=== PATIENT | male | born 1990 | race Two or more races ===

== ENCOUNTER 2018-03-31 22:21 | Inpatient (IN) | payer MEDICAID, OTHER ==
[~2018-03-31] VITALS: Ht 170.2 cm; Wt 57.3 kg
[2018-04-01 01:19] LABS: Basophils # (auto) 0 uL; Eosinophils # (auto) 0 uL; Hemoglobin 18.4 g/dL (13.5-17.5); Lymphocytes # (auto) 0.9 uL
[2018-04-01 01:21] LABS: Basophils % (auto) 0.2 % (0.0-2.0); Hematocrit 53.9 % (41.0-53.0); Lymphocytes % (auto) 9.5 % (10.0-50.0); Mean Corpuscular Hemoglobin 31.6 pg (28.0-32.0); Mean Corpuscular Hgb Conc. 34.1 g/dL (32.0-36.0); Mean Corpuscular Volume 92.7 fL (80.0-100.0); Monocytes # (auto) 0.2 uL; Monocytes % (auto) 2.4 % (0.0-12.0); Neutrophils # (auto) 8.5 uL; Neutrophils % (auto) 87.9 % (37.0-80.0); Nucleated Red Blood Cells % 0.2 %; Platelet Count (auto) 210 10^3/uL (140-450); Red Blood Cells 5.81 10^6/uL (4.5-5.90); Red Cell Distribution Width 14.2 % (11.8-14.3); White Blood Cell 9.7 10^3/uL (4.4-10.8)
[2018-04-01] MEDS ORDERED: InsuLIN REG 1unit/0.01ml Soln (100units/ml) IV ONE (01:30)
[2018-04-01] MEDS ORDERED: SODIUM CHLORIDE 0.9% 3,000 ML IV ONE ×2 (01:30→01:45)
[2018-04-01] MEDS ORDERED: KETOROLAC TROMETH 30 MG/ML 1ML VIAL IV ONE (01:45)
[2018-04-01] MEDS ORDERED: SODIUM BICARBONATE 8.4 % INJ 50ML VIAL IV ONE (01:45)
[2018-04-01] MEDS ORDERED: PANTOPRAZOLE 40 MG/10 ML VIAL IV ONE (01:45)
[2018-04-01 01:47] LABS: Albumin 4.7 g/dL (3.4-5.0); Calcium 9.3 mg/dL (8.5-10.1); Magnesium 2.6 mg/dL (1.6-2.6); Potassium 3.6 mmol/L (3.5-5.1)
[2018-04-01 01:49] LABS: Bilirubin, Total 1.1 mg/dL (0.2-1.0); Lactic Acid w/Reflex 3.1 mmol/L (0.4-2.0); Total Protein 9.4 g/dL (6.4-8.2)
[2018-04-01] MEDS ORDERED: cefTRIAXone 1GM/10ml IVPUSH 10 ML IV ONE (02:30)
[2018-04-01] MEDS ORDERED: fentaNYL CITRATE 100 MCG/2 ML VL IV ONE (03:00)
[2018-04-01] MEDS ORDERED: DEXTROSE (50%) 50ML SYRG IV PRN (03:00)
[2018-04-01] MEDS: ACCU-CHEK COMFORT CURVE STRIP VI SCH ×14 (03:00→22:54)
[2018-04-01] MEDS ORDERED: InsuLIN R (HUMAN) 100 UNITS in SODIUM CHL 0.9% 99 ML IV SCH (03:00)
[2018-04-01] MEDS: InsuLIN R (HUMAN) 100 UNITS in SODIUM CHL 0.9% 99 ML IV SCH ×3 (03:00→22:54)
[2018-04-01 03:02] LABS: Alcohol, Urine < 3.0 mg/dL (0-5); Amphetamine Screen, Urine NEGATIVE (NEGATIVE); Barbiturate Scree,Urine NEGATIVE (NEGATIVE); Benzodiazephine Screen, Urine NEGATIVE (NEGATIVE); Cannabinoid Screen, Urine POSITIVE (NEGATIVE); Cocaine Screen, Urine NEGATIVE (NEGATIVE); Opiate Scree,Urine NEGATIVE (NEGATIVE); Phencyclidine Screen, Urine NEGATIVE (NEGATIVE)
[2018-04-01 03:14] LABS: Urine Bacteria FEW /hpf (None Seen); Urine Blood TRACE /uL (Negative); Urine Hyaline Cast MANY /lpf (0 - 2); Urine Mucus FEW (None Seen); Urine Specific Gravity 1.018 (1.001-1.035); Urine WBC 1 /hpf (0 - 3)
[2018-04-01] MEDS ORDERED: SODIUM BICARBONATE 50ML VIAL 50 ML in SOD CHL 0.45% 1,000 ML IV SCH (03:15)
[2018-04-01] MEDS ORDERED: SODIUM BICARBONATE 8.4% INJ 50ML SYRINGE ONE (03:27)
[2018-04-01] MEDS: SODIUM CHLORIDE 0.9% 1,000 ML IV SCH ×3 (03:52→22:20)
[2018-04-01] MEDS ORDERED: SODIUM CHLORIDE 0.9% 1,000 ML IV ONE (04:00)
[2018-04-01 05:03] LABS: Basophils # (auto) 0.1 uL; Basophils % (auto) 1.1 % (0.0-2.0); Eosinophils # (auto) 0 uL; Eosinophils % (auto) 0.3 % (0.0-7.0); Hematocrit 39.7 % (41.0-53.0); Hemoglobin 13.8 g/dL (13.5-17.5); Lymphocytes # (auto) 0.2 uL; Lymphocytes % (auto) 2.7 % (10.0-50.0); Mean Corpuscular Hemoglobin 31.1 pg (28.0-32.0); Mean Corpuscular Hgb Conc. 34.8 g/dL (32.0-36.0); Mean Corpuscular Volume 89.5 fL (80.0-100.0); Monocytes # (auto) 0.3 uL; Neutrophils # (auto) 8.4 uL; Neutrophils % (auto) 92.9 % (37.0-80.0); Platelet Count (auto) 153 10^3/uL (140-450); Red Blood Cells 4.43 10^6/uL (4.5-5.90); Red Cell Distribution Width 13.7 % (11.8-14.3); White Blood Cell 9.1 10^3/uL (4.4-10.8)
[2018-04-01 05:12] LABS: BUN/Creatinine Ratio 12.3; Calcium 6.6 mg/dL (8.5-10.1)
[2018-04-01 05:32] LABS: Potassium 2.5 mmol/L (3.5-5.1)
[2018-04-01] MEDS ORDERED: POTASSIUM CHL 20MEQ/100ML 100 ML IV ONE ×2 (05:41→06:30)
[2018-04-01] MEDS: ACETAMINOPHEN 500 MG TAB PO PRN (07:49)
[2018-04-01] MEDS: ONDANSETRON HCL 4 MG/2 ML VIAL IV PRN ×5 (07:50→22:59)
[2018-04-01] MEDS: D5W/SOD CHL 0.9%/KCL 40MEQ 1,000 ML IV SCH ×2 (12:04→18:25)
[2018-04-01] MEDS: SULFAMETHOX W/TRIMETH(800/160MG) DS TAB PO SCH ×2 (12:04→22:00)
[2018-04-01 13:01] LABS: BUN/Creatinine Ratio 9.8; Calcium 7.1 mg/dL (8.5-10.1)
[2018-04-01 13:05] LABS: Potassium 2.1 mmol/L (3.5-5.1)
[2018-04-01] MEDS ORDERED: POTASSIUM CHL 20 Meq TABLET PO ONE ×2 (13:15→17:45)
[2018-04-01] MEDS: POTASSIUM CHL 20 Meq TABLET PO SCH ×2 (13:34→22:00)
[2018-04-01] MEDS: KETOROLAC TROMETH 30 MG/ML 1ML VIAL IV PRN (15:52)
[2018-04-01 17:23] LABS: BUN/Creatinine Ratio 8.5; Calcium 7.5 mg/dL (8.5-10.1)
[2018-04-01 17:25] LABS: Potassium 2.3 mmol/L (3.5-5.1)
[2018-04-01] MEDS: MORPHINE SULF INJ 2 MG/ML SYRINGE 1ML IV PRN ×2 (17:40→22:59)
[2018-04-01 22:49] LABS: BUN/Creatinine Ratio 7.6; Calcium 7.7 mg/dL (8.5-10.1)
[2018-04-02] MEDS: D5W/SOD CHL 0.9%/KCL 40MEQ 1,000 ML IV SCH (01:08)
[2018-04-02] MEDS: ACCU-CHEK COMFORT CURVE STRIP VI SCH ×7 (01:30→21:15)
[2018-04-02] MEDS ORDERED: DEXTROSE (50%) 50ML SYRG IV PRN (02:15)
[2018-04-02] MEDS: SOD CHL 0.9%/ KCL 40MEQ 1,000 ML IV SCH ×4 (04:20→22:05)
[2018-04-02] MEDS: InsuLIN REG 1unit/0.01ml Soln (100units/ml) SC SCH ×5 (04:25→21:18)
[2018-04-02] MEDS: ONDANSETRON HCL 4 MG/2 ML VIAL IV PRN ×4 (04:31→21:07)
[2018-04-02] MEDS: MORPHINE SULF INJ 2 MG/ML SYRINGE 1ML IV PRN ×4 (04:31→21:07)
[2018-04-02 05:00] VITALS: BP_SYST 103; BP_SYST 129; BP_DIAS 74; BP_DIAS 83
[2018-04-02] MEDS ORDERED: METO5TAB2 PO (05:14)
[2018-04-02] MEDS ORDERED: INSREG3 SC (05:14)
[2018-04-02] MEDS ORDERED: FAMO-12 PO (05:14)
[2018-04-02] MEDS ORDERED: TRAM50TA2 PO (05:14)
[2018-04-02] MEDS: KETOROLAC TROMETH 30 MG/ML 1ML VIAL IV PRN (06:37)
[2018-04-02] MEDS: POTASSIUM CHL 20 Meq TABLET PO SCH ×3 (06:37→21:19)
[2018-04-02] MEDS ORDERED: POTASSIUM CHL 20 Meq TABLET PO ONE (08:15)
[2018-04-02 08:50] LABS: Basophils # (auto) 0 uL; Basophils % (auto) 0.3 % (0.0-2.0); Eosinophils # (auto) 0 uL; Eosinophils % (auto) 0.1 % (0.0-7.0); Hematocrit 32.6 % (41.0-53.0); Hemoglobin 11.8 g/dL (13.5-17.5); Lymphocytes # (auto) 1.1 uL; Lymphocytes % (auto) 28.1 % (10.0-50.0); Mean Corpuscular Volume 86.2 fL (80.0-100.0); Monocytes # (auto) 0.4 uL; Neutrophils # (auto) 2.3 uL; Neutrophils % (auto) 61.5 % (37.0-80.0); Platelet Count (auto) 122 10^3/uL (140-450); Red Blood Cells 3.79 10^6/uL (4.5-5.90); Red Cell Distribution Width 13.9 % (11.8-14.3); White Blood Cell 3.8 10^3/uL (4.4-10.8)
[2018-04-02 09:00] VITALS: BP 95/66
[2018-04-02 09:07] LABS: BUN/Creatinine Ratio 8.3; Magnesium 2.3 mg/dL (1.6-2.6); Potassium 3.7 mmol/L (3.5-5.1)
[2018-04-02] MEDS: SULFAMETHOX W/TRIMETH(800/160MG) DS TAB PO SCH ×2 (10:26→21:19)
[2018-04-02] MEDS: Glucerna Carbsteady SHAKE Vanilla 8oz PO SCH ×3 (12:00→21:20)
[2018-04-02 12:40] VITALS: BP 86/56
[2018-04-02 17:14] VITALS: BP 94/66
[2018-04-02 22:00] VITALS: BP 97/57
[2018-04-03] MEDS: ACCU-CHEK COMFORT CURVE STRIP VI SCH ×5 (01:21→21:20)
[2018-04-03] MEDS: InsuLIN REG 1unit/0.01ml Soln (100units/ml) SC SCH ×4 (01:23→17:36)
[2018-04-03] MEDS: SOD CHL 0.9%/ KCL 40MEQ 1,000 ML IV SCH ×4 (04:00→21:29)
[2018-04-03] MEDS: ONDANSETRON HCL 4 MG/2 ML VIAL IV PRN ×2 (04:01→20:09)
[2018-04-03] MEDS: MORPHINE SULF INJ 2 MG/ML SYRINGE 1ML IV PRN (04:02)
[2018-04-03 05:00] VITALS: BP 98/62
[2018-04-03] MEDS: POTASSIUM CHL 20 Meq TABLET PO SCH (06:21)
[2018-04-03 06:43] LABS: BUN/Creatinine Ratio 6.5; Calcium 8.2 mg/dL (8.5-10.1); Potassium 4.3 mmol/L (3.5-5.1)
[2018-04-03 06:53] LABS: Basophils # (auto) 0 uL; Basophils % (auto) 0.3 % (0.0-2.0); Eosinophils # (auto) 0 uL; Eosinophils % (auto) 0.7 % (0.0-7.0); Hematocrit 35.7 % (41.0-53.0); Hemoglobin 12.8 g/dL (13.5-17.5); Lymphocytes # (auto) 1.3 uL; Lymphocytes % (auto) 32.6 % (10.0-50.0); Mean Corpuscular Hemoglobin 31.5 pg (28.0-32.0); Mean Corpuscular Hgb Conc. 35.7 g/dL (32.0-36.0); Mean Corpuscular Volume 88.1 fL (80.0-100.0); Monocytes # (auto) 0.4 uL; Monocytes % (auto) 10.5 % (0.0-12.0); Neutrophils # (auto) 2.3 uL; Neutrophils % (auto) 55.9 % (37.0-80.0); Nucleated Red Blood Cells % 0.1 %; Platelet Count (auto) 127 10^3/uL (140-450); Red Blood Cells 4.06 10^6/uL (4.5-5.90)
[2018-04-03] MEDS ORDERED: DEXTROSE (50%) 50ML SYRG IV PRN (08:15)
[2018-04-03] MEDS: SULFAMETHOX W/TRIMETH(800/160MG) DS TAB PO SCH ×2 (08:39→21:16)
[2018-04-03] MEDS: KETOROLAC TROMETH 30 MG/ML 1ML VIAL IV PRN ×2 (08:48→17:36)
[2018-04-03 09:00] VITALS: BP 93/71
[2018-04-03] MEDS: METOCLOPRAMIDE HCL 10 MG/10ml ORAL soln PO SCH ×2 (11:34→17:29)
[2018-04-03] MEDS: Glucerna Carbsteady SHAKE Vanilla 8oz PO SCH ×4 (11:34→23:09)
[2018-04-03 13:00] VITALS: BP 70/44
[2018-04-03 15:03] VITALS: BP 92/66
[2018-04-03 17:00] VITALS: BP 115/79
[2018-04-03] MEDS: ACETAMINOPHEN 500 MG TAB PO PRN (21:29)
[2018-04-03 22:00] VITALS: BP 102/70
[2018-04-03] MEDS ORDERED: InsuLIN REG 1unit/0.01ml Soln (100units/ml) SC SCH (22:00)
[2018-04-03] MEDS ORDERED: TEMAZEPAM 15 MG CAP PO PRN (22:30)
[2018-04-03] MEDS ORDERED: MORPHINE SULFATE 4 MG/ML SYR/VIAL IV ONE (22:30)
[2018-04-04 05:00] VITALS: BP 98/63
[2018-04-04] MEDS: ACCU-CHEK COMFORT CURVE STRIP VI SCH ×3 (06:20→17:00)
[2018-04-04] MEDS: METOCLOPRAMIDE HCL 10 MG/10ml ORAL soln PO SCH ×3 (06:30→17:00)
[2018-04-04] MEDS: SOD CHL 0.9%/ KCL 40MEQ 1,000 ML IV SCH ×2 (06:30→14:15)
[2018-04-04] MEDS: KETOROLAC TROMETH 30 MG/ML 1ML VIAL IV PRN (06:30)
[2018-04-04 06:44] LABS: Basophils # (auto) 0 uL; Basophils % (auto) 0.4 % (0.0-2.0); Eosinophils # (auto) 0 uL; Eosinophils % (auto) 0.9 % (0.0-7.0); Hematocrit 35.1 % (41.0-53.0); Hemoglobin 12.5 g/dL (13.5-17.5); Lymphocytes # (auto) 1.7 uL; Lymphocytes % (auto) 52.5 % (10.0-50.0); Mean Corpuscular Hemoglobin 31.8 pg (28.0-32.0); Mean Corpuscular Hgb Conc. 35.7 g/dL (32.0-36.0); Mean Corpuscular Volume 89.2 fL (80.0-100.0); Monocytes # (auto) 0.4 uL; Monocytes % (auto) 11.3 % (0.0-12.0); Neutrophils # (auto) 1.1 uL; Neutrophils % (auto) 34.9 % (37.0-80.0); Nucleated Red Blood Cells % 0.2 %; Platelet Count (auto) 110 10^3/uL (140-450); Red Blood Cells 3.94 10^6/uL (4.5-5.90); Red Cell Distribution Width 13.9 % (11.8-14.3); White Blood Cell 3.3 10^3/uL (4.4-10.8)
[2018-04-04] MEDS: InsuLIN REG 1unit/0.01ml Soln (100units/ml) SC SCH ×3 (06:52→17:00)
[2018-04-04 07:04] LABS: BUN/Creatinine Ratio 10.4; Calcium 8.1 mg/dL (8.5-10.1); Potassium 4.2 mmol/L (3.5-5.1)
[2018-04-04 09:00] VITALS: BP 106/76
[2018-04-04] MEDS: SULFAMETHOX W/TRIMETH(800/160MG) DS TAB PO SCH (10:02)
[2018-04-04] MEDS: Glucerna Carbsteady SHAKE Vanilla 8oz PO SCH ×3 (10:02→18:23)
[2018-04-04 13:00] VITALS: BP 83/56
== END 2018-04-04 19:21 | disposition home or self-care (01) | DRG 420 ==
LOC: ER 22:21 → TELE 22:22 → TELE-WESTW 04-02 04:40
PROVIDERS: ADMIT Nurse Practitioner Family; ATTEND Internal Medicine
DX: E10.10 Type 1 diabetes mellitus with ketoacidosis without coma (principal); R65.10 Systemic inflammatory response syndrome (SIRS) of non-infectious origin without acute organ dysfunction; E87.6 Hypokalemia; H00.031 Abscess of right upper eyelid; N20.0 Calculus of kidney; Z79.4 Long term (current) use of insulin; Z91.14 Patient's other noncompliance with medication regimen
CPT/HCPCS: 36415; 36600; 71045; 74176; 80048; 80053; 80307; 80320; 81001; 82010; 82805; 82962; 83036; 83605; 83690; 83735; 85025; 87040; 87081; 94761; 96361; 96365; 96375; 99291; C9113; J0696; J1815; J1885; J2405; J3480

== ENCOUNTER 2018-05-12 16:07 | Inpatient (IN) | payer MEDICAID ==
[~2018-05-12] VITALS: Ht 182.9 cm; Wt 53.3 kg
[~2018-05-12 16:07] MED LIST: FAMO-12 PO; INSREG3 SC; METO5TAB2 PO; TRAM50TA2 PO
[2018-05-12] MEDS ORDERED: SODIUM CHLORIDE 0.9% 1,000 ML IV ONE ×2 (16:49)
[2018-05-12] MEDS ORDERED: InsuLIN REG 1unit/0.01ml Soln (100units/ml) IV ONE (17:00)
[2018-05-12 19:17] LABS: Basophils # (auto) 0 uL; Basophils % (auto) 0.2 % (0.0-2.0); Eosinophils # (auto) 0 uL; Hematocrit 47.4 % (41.0-53.0); Hemoglobin 16.6 g/dL (13.5-17.5); Lymphocytes # (auto) 1.2 uL; Lymphocytes % (auto) 25.3 % (10.0-50.0); Mean Corpuscular Hemoglobin 31.5 pg (28.0-32.0); Mean Corpuscular Hgb Conc. 35.1 g/dL (32.0-36.0); Mean Corpuscular Volume 89.7 fL (80.0-100.0); Monocytes # (auto) 0.4 uL; Monocytes % (auto) 9.3 % (0.0-12.0); Neutrophils # (auto) 3.1 uL; Neutrophils % (auto) 65.2 % (37.0-80.0); Platelet Count (auto) 142 10^3/uL (140-450); Red Blood Cells 5.29 10^6/uL (4.5-5.90); Red Cell Distribution Width 14.2 % (11.8-14.3); White Blood Cell 4.7 10^3/uL (4.4-10.8)
[2018-05-12 19:31] LABS: BUN/Creatinine Ratio 8.8; Calcium 8.5 mg/dL (8.5-10.1); Magnesium 2.1 mg/dL (1.6-2.6)
[2018-05-12 19:34] LABS: Bilirubin, Total 1.5 mg/dL (0.2-1.0); Potassium 2.9 mmol/L (3.5-5.1); Total Protein 7.8 g/dL (6.4-8.2)
[2018-05-12] MEDS ORDERED: SODIUM CHLORIDE 0.9% 2,000 ML IV ONE (20:30)
[2018-05-12] MEDS ORDERED: SODIUM BICARBONATE 8.4 % INJ 50ML VIAL IV ONE (20:30)
[2018-05-12] MEDS ORDERED: POTASSIUM EFFERVESENT TAB 25 MEQ PO ONE (20:30)
[2018-05-12] MEDS ORDERED: CIPROFLOXACIN HCL 500 MG TAB PO ONE (21:00)
[2018-05-12] MEDS ORDERED: ONDANSETRON HCL 4 MG/2 ML VIAL IV ONE (21:00)
[2018-05-12] MEDS ORDERED: fentaNYL CITRATE 100 MCG/2 ML VL IV ONE (21:00)
[2018-05-12] MEDS ORDERED: InsuLIN R (HUMAN) 100 UNITS in SODIUM CHL 0.9% 99 ML IV SCH (21:07)
[2018-05-12] MEDS ORDERED: NITROGLYCERIN 0.4 MG SL TAB SL PRN (21:15)
[2018-05-12] MEDS ORDERED: ACETAMINOPHEN 325 MG TAB PO PRN (21:15)
[2018-05-12] MEDS ORDERED: DEXTROSE (50%) 50ML SYRG IV PRN (21:15)
[2018-05-12] MEDS ORDERED: MORPHINE SULF INJ 2 MG/ML SYRINGE 1ML IV PRN (21:15)
[2018-05-12] MEDS: POTASSIUM CHL 20MEQ/100ML 100 ML IV SCH (21:29)
[2018-05-12] MEDS: SODIUM CHLORIDE 0.9% 1,000 ML IV SCH (22:08)
[2018-05-12] MEDS: ACCU-CHEK COMFORT CURVE STRIP VI SCH (22:56)
[2018-05-12] MEDS: HYDROcodone-ACET 5/325MG TAB PO PRN (23:04)
[2018-05-12] MEDS: TEMAZEPAM 15 MG CAP PO PRN (23:04)
[2018-05-13] MEDS: ACCU-CHEK COMFORT CURVE STRIP VI SCH ×8 (00:15→22:00)
[2018-05-13 00:27] LABS: Urine Bacteria FEW /hpf (None Seen); Urine Blood TRACE /uL (Negative); Urine Hyaline Cast FEW /lpf (0 - 2); Urine Mucus FEW (None Seen); Urine Specific Gravity 1.016 (1.001-1.035); Urine WBC 1 /hpf (0 - 3)
[2018-05-13 00:57] LABS: BUN/Creatinine Ratio 13.5; Potassium 3.1 mmol/L (3.5-5.1)
[2018-05-13] MEDS ORDERED: SODIUM CHLORIDE 0.9% 1,000 ML IV SCH ×3 (01:07→03:20)
[2018-05-13] MEDS: SODIUM CHLORIDE 0.9% 1,000 ML IV SCH (01:41)
[2018-05-13] MEDS: POTASSIUM CHL 20MEQ/100ML 100 ML IV SCH ×3 (01:41→09:43)
[2018-05-13] MEDS ORDERED: CALCIUM GLUC 4.65meq/50ml D5AE 50 ML IV ONE (03:15)
[2018-05-13 03:47] LABS: Basophils # (auto) 0 uL; Basophils % (auto) 0.4 % (0.0-2.0); Eosinophils # (auto) 0 uL; Eosinophils % (auto) 0.2 % (0.0-7.0); Hematocrit 35.5 % (41.0-53.0); Hemoglobin 12.7 g/dL (13.5-17.5); Lymphocytes # (auto) 1.3 uL; Lymphocytes % (auto) 27.7 % (10.0-50.0); Mean Corpuscular Hemoglobin 31.6 pg (28.0-32.0); Mean Corpuscular Hgb Conc. 35.7 g/dL (32.0-36.0); Mean Corpuscular Volume 88.4 fL (80.0-100.0); Monocytes # (auto) 0.7 uL; Monocytes % (auto) 13.7 % (0.0-12.0); Neutrophils # (auto) 2.8 uL; Nucleated Red Blood Cells % 0.1 %; Platelet Count (auto) 120 10^3/uL (140-450); Red Blood Cells 4.01 10^6/uL (4.5-5.90); Red Cell Distribution Width 13.9 % (11.8-14.3); White Blood Cell 4.8 10^3/uL (4.4-10.8)
[2018-05-13 04:03] LABS: Alanine Aminotransferase 8 U/L (16-61); Albumin 2.8 g/dL (3.4-5.0); Anion Gap 13 (5-15); Aspartate Aminotransferase < 3 U/L (15-37); BUN/Creatinine Ratio 10.9; Blood Urea Nitrogen 7 mg/dL (7-18); Calcium 6.9 mg/dL (8.5-10.1); Carbon Dioxide 20 mmol/L (21-32); Chloride 107 mmol/L (98-107); GFR African American 196 mL/min; GFR Non-African American 162 mL/min; Glucose 129 mg/dL (74-106); Sodium 140 mmol/L (136-145)
[2018-05-13 04:06] LABS: Alkaline Phosphatase 70 U/L (45-117); Total Protein 5.4 g/dL (6.4-8.2)
[2018-05-13 04:17] LABS: Potassium 2.7 mmol/L (3.5-5.1)
[2018-05-13] MEDS ORDERED: DEXTROSE (50%) 50ML SYRG IV PRN ×2 (07:45→10:45)
[2018-05-13] MEDS ORDERED: SOD CHL 0.9%/ KCL 20MEQ 1,000 ML IV SCH (07:45)
[2018-05-13] MEDS ORDERED: InsuLIN REG 1unit/0.01ml Soln (100units/ml) SC SCH ×2 (08:00→22:00)
[2018-05-13] MEDS ORDERED: ACCU-CHEK COMFORT CURVE STRIP VI SCH (08:00)
[2018-05-13] MEDS ORDERED: POTASSIUM CHL 20 Meq TABLET PO ONE ×2 (10:45→20:00)
[2018-05-13] MEDS: HYDROcodone-ACET 5/325MG TAB PO PRN ×3 (10:58→21:00)
[2018-05-13] MEDS: InsuLIN REG 1unit/0.01ml Soln (100units/ml) SC SCH ×2 (11:30→17:00)
[2018-05-13 11:57] VITALS: BP 112/82
[2018-05-13] MEDS: PANTOPRAZOLE 40 MG/10 ML VIAL IV SCH (12:54)
[2018-05-13] MEDS: ONDANSETRON HCL 4 MG/2 ML VIAL IV PRN ×3 (13:09→20:57)
[2018-05-13] MEDS: SOD CHL 0.9%/ KCL 20MEQ 1,000 ML IV SCH ×2 (13:10→18:45)
[2018-05-13 14:13] VITALS: BP 109/67
[2018-05-13] MEDS ORDERED: INSLANTI SC (14:29)
[2018-05-13 16:56] VITALS: BP 92/61
[2018-05-13] MEDS: TEMAZEPAM 15 MG CAP PO PRN (20:59)
[2018-05-13 22:00] VITALS: BP 117/66
[2018-05-14] MEDS: SOD CHL 0.9%/ KCL 20MEQ 1,000 ML IV SCH ×2 (02:45→06:23)
[2018-05-14 05:00] VITALS: BP 117/75
[2018-05-14 05:43] LABS: Basophils # (auto) 0 uL; Basophils % (auto) 0.3 % (0.0-2.0); Eosinophils # (auto) 0 uL; Eosinophils % (auto) 0.9 % (0.0-7.0); Hematocrit 39.2 % (41.0-53.0); Hemoglobin 13.8 g/dL (13.5-17.5); Lymphocytes # (auto) 1.7 uL; Lymphocytes % (auto) 52.4 % (10.0-50.0); Mean Corpuscular Hemoglobin 31.8 pg (28.0-32.0); Mean Corpuscular Hgb Conc. 35.3 g/dL (32.0-36.0); Mean Corpuscular Volume 89.9 fL (80.0-100.0); Monocytes # (auto) 0.4 uL; Monocytes % (auto) 13.1 % (0.0-12.0); Neutrophils # (auto) 1.1 uL; Neutrophils % (auto) 33.3 % (37.0-80.0); Nucleated Red Blood Cells % 0.3 %; Platelet Count (auto) 102 10^3/uL (140-450); Red Blood Cells 4.36 10^6/uL (4.5-5.90); Red Cell Distribution Width 14.5 % (11.8-14.3); White Blood Cell 3.3 10^3/uL (4.4-10.8)
[2018-05-14 06:04] LABS: BUN/Creatinine Ratio 6.8; Calcium 8.7 mg/dL (8.5-10.1); Potassium 4.2 mmol/L (3.5-5.1)
[2018-05-14] MEDS: InsuLIN REG 1unit/0.01ml Soln (100units/ml) SC SCH ×2 (06:12→11:53)
[2018-05-14] MEDS: ACCU-CHEK COMFORT CURVE STRIP VI SCH ×2 (06:16→11:53)
[2018-05-14 08:58] VITALS: BP 99/71
[2018-05-14] MEDS: ONDANSETRON HCL 4 MG/2 ML VIAL IV PRN (09:44)
[2018-05-14] MEDS: PANTOPRAZOLE 40 MG/10 ML VIAL IV SCH (10:00)
[2018-05-14 10:39] VITALS: BP 99/71
[2018-05-14 12:57] VITALS: BP 131/80
== END 2018-05-14 15:40 | disposition home or self-care (01) | DRG 420 ==
LOC: ER 16:14 → TELE 16:15 → TELE-WESTW 05-13 10:25
PROVIDERS: ADMIT Nurse Practitioner; ATTEND Internal Medicine
DX: E10.10 Type 1 diabetes mellitus with ketoacidosis without coma (principal); N17.0 Acute kidney failure with tubular necrosis; E44.0 Moderate protein-calorie malnutrition; E86.0 Dehydration; N20.0 Calculus of kidney; E87.6 Hypokalemia; Z82.49 Family history of ischemic heart disease and other diseases of the circulatory system; Z79.4 Long term (current) use of insulin; Z83.3 Family history of diabetes mellitus; Z91.14 Patient's other noncompliance with medication regimen; Z91.19 Patient's noncompliance with other medical treatment and regimen; Z68.1 Body mass index [BMI] 19.9 or less, adult
CPT/HCPCS: 36415; 36600; 74176; 80048; 80053; 81001; 82010; 82805; 82962; 83036; 83735; 83930; 84132; 85025; 96361; 96374; 96375; C9113; J0610; J1815; J2405; J3480